=== PATIENT | male | born 1975 | race Caucasian/White ===

== ENCOUNTER 2019-09-18 21:41 | Emergency (ER) | payer OTHER ==
[~2019-09-18] VITALS: Ht 172.7 cm; Wt 77.6 kg
[2019-09-18 21:45] VITALS: Ht 172.7 cm; Wt 77.6 kg
[2019-09-19 02:57] VITALS: BP 122/87
== END 2019-09-19 02:57 | disposition home or self-care (01) ==
LOC: ED 21:41
DX: S61.012A Laceration without foreign body of left thumb without damage to nail, initial encounter (principal); Z88.2 Allergy status to sulfonamides; X58.XXXA Exposure to other specified factors, initial encounter
CPT/HCPCS: 90715; A4570; J2001; Q0092